=== PATIENT | male | born 1995 | race Caucasian/White ===

== ENCOUNTER 2019-03-01 13:23 | Emergency (ER) | payer MEDICAID ==
[~2019-03-01] VITALS: Ht 180.3 cm; Wt 72.7 kg
[2019-03-01] MEDS ORDERED: BACITRACIN 0.9 GM PACKET OINTMENT TP ONE (14:30)
[2019-03-01 15:28] VITALS: BP 130/80
== END 2019-03-01 15:51 | disposition home or self-care (01) ==
LOC: EMS 13:28
DX: S01.01XA Laceration without foreign body of scalp, initial encounter (principal); J45.909 Unspecified asthma, uncomplicated; F12.90 Cannabis use, unspecified, uncomplicated; W22.8XXA Striking against or struck by other objects, initial encounter; Y93.89 Activity, other specified; Y92.89 Other specified places as the place of occurrence of the external cause; Y99.0 Civilian activity done for income or pay

== ENCOUNTER 2024-06-02 20:55 | Emergency (ER) | payer MEDICAID, OTHER ==
[~2024-06-02] VITALS: Ht 180.3 cm; Wt 88.2 kg
[2024-06-02 21:24] VITALS: TEMP 99.3
[2024-06-02 21:34] LABS: COVID AG,FIA SOURCE NASAL SWAB
[2024-06-02 21:56] LABS: SARS-COV2 (COVID) ANTIGEN,FIA Negative (Negative)
[2024-06-02 21:57] LABS: INFLUENZA TYPE A NEGATIVE FOR TYPE A (NEGATIVE); INFLUENZA TYPE B NEGATIVE FOR TYPE B (NEGATIVE)
[2024-06-03 01:01] VITALS: BP 125/86; PULSE 74; RESP 18; O2SAT 100
[2024-06-03] MEDS ORDERED: AZIT250T9 PO (02:06)
[2024-06-03] MEDS ORDERED: GUAIFDM PO (02:06)
[2024-06-03] MEDS ORDERED: BENZ-227 PO (02:06)
== END 2024-06-03 03:03 | disposition home or self-care (01) ==
LOC: EMS 20:55
DX: R07.89 Other chest pain (principal); R05.9 Cough, unspecified; R06.00 Dyspnea, unspecified; J45.909 Unspecified asthma, uncomplicated; F12.90 Cannabis use, unspecified, uncomplicated; Z20.822 Contact with and (suspected) exposure to COVID-19
CPT/HCPCS: 71045; 87804; 93005; 99285